=== PATIENT | female | born 1955 | race Caucasian/White ===

== ENCOUNTER 2018-10-23 21:56 | Observation (INO) | payer OTHER ==
[~2018-10-23] VITALS: Ht 170.2 cm; Wt 103.9 kg
[2018-10-23 22:18] VITALS: BP 114/71
--- NOTE | 2018-10-23 23:24 | NUR ---
PATIENT TO CT AT THIS TIME
[2018-10-23 23:27] LABS: ABSOLUTE NEUTROPHILS 4.5 thou/uL (1.4-8.2); BASOPHILS 0.6 % (0.0-2.0); EOSINOPHILS 1.6 % (0.0-3.0); HEMATOCRIT 43.8 % (37.0-47.0); HEMOGLOBIN 14.9 gm/dL (12.0-15.0); LYMPHOCYTES 21.4 % (24.0-44.0); MCH 31.1 pg (26.0-34.0); MCV 91.5 fL (80.0-100.0); MONOCYTES 6.9 % (1.0-8.0); PLATELET COUNT 169 thou/uL (150-400); POLYS 69.5 % (36.0-66.0); RBC 4.78 mil/uL (4.20-5.00); RDW 12.9 % (10.5-14.5); WBC 6.5 thou/uL (4.0-11.0)
[2018-10-23 23:35] LABS: ANION GAP 11 mmol/L (7-16); BUN 18 mg/dL (7-18); CALCIUM 9.6 mg/dL (8.5-10.1); CHLORIDE 103 mmol/L (98-107); CO2 27 mmol/L (21-32); GLUCOSE 115 mg/dL (74-106); POTASSIUM 3.5 mmol/L (3.5-5.1); SODIUM 141 mmol/L (136-145)
[2018-10-23 23:43] LABS: ALBUMIN 3.7 g/dL (3.4-5.0); DIRECT BILIRUBIN < 0.1 mg/dL (<0.1-0.3); SGOT 22 U/L (15-37); SGPT 45 U/L (30-65); TOTAL BILIRUBIN 0.3 mg/dL (<0.1-1.0); TOTAL PROTEIN 7.4 g/dL (6.4-8.2); TROPONIN-I <0.06 ng/mL (<0.06)
[2018-10-24] VITALS (9 sets, daily range): BP systolic 84–157; BP diastolic 60–97
[2018-10-24 00:11] LABS: URINE BILIRUBIN NEGATIVE (Negative); URINE BLOOD NEGATIVE (Negative); URINE CLARITY CLEAR; URINE COLOR YELLOW; URINE GLUCOSE-RANDOM* NEGATIVE (Negative); URINE KETONES NEGATIVE (Negative); URINE LEUKOCYTES-REFLEX TRACE (Negative); URINE NITRITE-REFLEX NEGATIVE (Negative); URINE PROTEIN (DIPSTICK) NEGATIVE (Negative); URINE UROBILINOGEN 0.2 E.U./dl (0.2-1.0)
--- NOTE | 2018-10-24 00:42 | NUR ---
PROVIDER AT BEDSIDE FOR LACERATION REPAIR.
--- NOTE | 2018-10-24 02:03 | NUR ---
PHYSICIAN AT BEDSIDE TO CONTINUE CLOSING LACERATION
--- NOTE | 2018-10-24 02:08 | NUR ---
REPORT TO INPATIENT NURSELACIE
[2018-10-24] MEDS ORDERED: ASPIR 8181 MG PO (03:04)
[2018-10-24] MEDS ORDERED: LISINOPRIL20 MG PO (03:04)
[2018-10-24] MEDS ORDERED: B COMPLEX1 EACH PO (03:05)
[2018-10-24] MEDS ORDERED: CALCIUM 500 +1 EAC5 PO (03:05)
[2018-10-24] MEDS ORDERED: MAGOX 400400 MG PO (03:05)
--- NOTE | 2018-10-24 04:58 | NUR ---
RECEIVED REPORT FROM ER NURSE. PT ARRIVED TO ROOM 363 AROUND 0230. ADMISSION HX AND ASSESSMENT COMPLETED CHARTED. LEFT FOREHEAD LACERATION WITH SUTURES INTACT. IVF INFUSING ORDERED. UP W/ SBA TO BTR. STEADY GAIT. VSS. AFEBRILE. PT SLEEPING AT THIS TIME. FALL PRECAUTIONS IN PLACE. PROGRESSING TOWARD POC GOALS. WILL CONTINUE TO MONITOR FURTHER.
[2018-10-24 06:01] LABS: CALCIUM 8.7 mg/dL (8.5-10.1); CREATININE 0.8 mg/dL (0.6-1.0)
--- NOTE | 2018-10-24 08:39 | NUR ---
ASSESSMENT: CM REVIEWED CHART AND MET WITH PATIENT AT THE BEDSIDE. PT REPORTS SHE LIVES IN A HOUSE WITH S.O. PT REPORTS SHE HAS TWO STEPS TO ENTER AND ALL HER NEEDS ARE ON ONE LEVEL. PT STATES SHE DOES GO INTO THE BASEMENT WITH ABOUT 14 STEPS WITH HANDRAILS TO WORK AT TIMES. PT REPORTS BEING FULLY INDEPENDENT WITH ADLS AND AMBULATION. PT REPORTS HAVING A WALK IN SHOWER WITH A GRAB BAR. PT DENIES HAVING HH IN THE PAST OR BEING TO A SNF. CM DISCUSSED ROLE AND PT DOES NOT ANTICIPATE HAVING ANY NEEDS AT DISCHARGE. CM WILL CONTINUE TO FOLLOW TO ASSIST NEEDED.
--- NOTE | 2018-10-24 12:11 | NUR ---
Received awake on bed. A+Ox4. On room air. Pt sutures at forehead- dry, intact, no signs of infection, sutures intact. With NS 75cc/hr at L FA, infusing well/ Pt with redness at groin and sacrum- Dr Narvaez informed and assessed pt, with ointment prescribed for the patient. Falls risk- pt on standby assist, admitted d/t syncope. Pt seen by Dr narvaez this AM- for discharge today after the pt been seen by PT. Received call from Dr Narvaez this PM, to cancel discharge for today, to observe BP- Pt and CM informed. Pt seen by PT today. Vital signs stable. Able to walk independently to the toilet, no episodes of light headedness and dizziness, on standby assist.
[2018-10-25 04:00] VITALS: BP 144/91
--- NOTE | 2018-10-25 04:46 | NUR ---
ASSUMED CARE OF PT. AT 1900. PT. IS A&OX4. AFEBRILE. VSS. PT. HAD 2 EPISODES OF DIARRHEA THROUGHOUT THE NIGHT WITH PAINFUL GAS, PRODUCT COMMUNICATIONS MANAGER NOTIFIED, ORDERS RECIEVED. PT. HAD NO EPISODES OF SYNCOPE THOROUOUT THE NIGHT AND RESTED WELL. PT. SHOULD BE ABLE TO GO HOME TODAY. WILL CONTINUE TO MONITOR.
[2018-10-25 07:36] VITALS: BP 146/94
--- NOTE | 2018-10-25 11:44 | NUR ---
on-going assessment: cm reviewed chart. PT IS SLOWLY PROGRESSING TOWARDS GOALS OF DISCHARGE AND MAY DISCHARGE LATER TODAY OR TOMORROW. PT WILL HAVE NO NEEDS AT DISCHARGE.
[2018-10-25 14:23] VITALS: BP 146/94
[2018-10-25 14:26] VITALS: BP 146/94
[2018-10-25 14:37] VITALS: BP 146/94
[2018-10-25 15:07] VITALS: BP 146/94
--- NOTE | 2018-10-25 15:07 | NUR ---
Patient discharged from hospital and left unit at 1505 by wheelchair. Left AC IV taken out, discharge education given, and medicare papers signed.
--- NOTE | 2018-10-26 17:23 | EKG ---
[address] [address] ELECTROCARDIOGRAM REPORT Name: KOID MCQUEEN Room #: 363-P [facility] M.R.#: [id number] ������������������ Admission: 10/24/18 ������������������ Attend Phys: Patrick Narvaez MD Discharge: 10/25/18 ������������������ Date of : 51 Report #: [id number] ����������������������������������������������������������������� [id number] THIS REPORT FOR: //name// [facility] ED Test Date: 2018-10-23 Test Time: 23:05:53 Pat Name: KODI MCQUEEN Department: Room: [facility] Gender: F Funeral Service Manager: pino : 1955 Requested By: Derek Nova Order Number: [id number] MD: Juan Francisco Che Measurements Intervals [place] Rate: 72 P: 41 MT: 166 QRS: -12 QRSD: 109 T: 41 QT: 447 QTc: 490 Interpretive Statements Sinus rhythm LVH with secondary repolarization abnormality Nonspecific ST-T wave changes No previous ECG available for comparison Electronically Signed On 10-26-2018 17:23:15 CDT by Juan Francisco Che [email or web address] ��������������������������������������������� <ELECTRONICALLY SIGNED> ���������������������������������������� By: Juan Francisco Che MD ��������������������������������������������� 10/26/18 1723 [id number] Juan Francisco Che MD /EPI
== END 2018-10-25 14:57 | disposition home or self-care (01) ==
LOC: ER 21:56 → 3W 10-24 01:05 → EROBS 10-24 01:05 → 3W 10-24 02:36
PROVIDERS: Nurse Practitioner; Nurse Practitioner Family; ADMIT Hospitalist
DX: R55 Syncope and collapse (principal); S01.112A Laceration without foreign body of left eyelid and periocular area, initial encounter; I10 Essential (primary) hypertension; I95.1 Orthostatic hypotension; Z88.8 Allergy status to other drugs, medicaments and biological substances; Z79.899 Other long term (current) drug therapy; W19.XXXA Unspecified fall, initial encounter; Y93.89 Activity, other specified; Y92.89 Other specified places as the place of occurrence of the external cause; Y99.8 Other external cause status
CPT/HCPCS: 10879